=== PATIENT | female | born 1980 | race Hispanic/Latino ===

== ENCOUNTER 2016-10-26 11:52 | Emergency (ER) | payer OTHER ==
[~2016-10-26] VITALS: Ht 157.5 cm; Wt 81.6 kg
[~2016-10-26 11:52] MED LIST: ATIVAN0.5 MG PO; MOBIC15 M1 PO; PENICILLIN V P500 M1 PO
[2016-10-26 11:57] VITALS: BP 130/82
--- NOTE | 2016-10-26 12:03 | ED THROAT/DENTAL COMPLAINT ---
History of Present Illness General Chief Complaint: Sore Throat, Dental Pain Stated Complaint: RT TOOTH PAIN Source: patient, old records Exam Limitations: no limitations Vital Signs & Intake/Output Vital Signs & Intake/Output Vital Signs Date Time Temp Pulse Resp B/P Pulse O2 O2 Flow FiO2 Ox Delivery Rate 10/26 1157 97.5 96 16 130/82 99 Room Air Allergies Coded Allergies: No Known Allergies (10/26/16) Reconcile Medications Amoxicillin 875 MG TABLET 1 TAB PO BID dental Meloxicam (Mobic) 15 MG TABLET 1 TAB PO DAILY PRN PAIN/INFLAMMATION Risperidone 4 MG TABLET 1 TAB PO QPM PRN SLEEP (Reported) Triage Note: TOOTH PAIN X1 MONTH. HAD EPISODES IN THE PAST. SAW DENTIST, DX WITH ROOT CANAL BUT WASN'T ABLE TO HAVE TREATMENT BECAUSE OF INSURANCE REASONS. HAS APPT THIS THURSDAY AT [facility]. TAKING TYLENOL WITH NO RELIEF. RADIATES TO RIGHT EAR Triage Nurses Notes Reviewed? yes : No Patient currently breastfeeds: No HPI: Patient is a 36 year old female presents complaining of right lower dental pain. Patient has had pain to the area previously. Pain exacerbated x 1 week. Has an appointment in 5 days with a dentist. Taking Ibuprofen with minimal improvement. Was on Meloxicam and antibiotics several months ago which provided improvement. Pain radiates to the right ear. Denies fevers or difficulty swallowing. (AGUS HANNA) Past History Travel History Traveled to [place] past 21 day No Medical History Any Pertinent Medical History? see below for history Neurological: NONE EENT: NONE Cardiovascular: NONE Respiratory: NONE Gastrointestinal: NONE Hepatic: NONE Renal: NONE Musculoskeletal: NONE Psychiatric: anxiety, depression Endocrine: NONE Blood Disorders: NONE Cancer(s): NONE Surgical History Surgical History: non-contributory Psychosocial History What is your primary language [place] Tobacco Use: Quit >30 days ago ETOH Use: denies use Illicit Drug Use: denies illicit drug use Family History Hx Contributory? No (AGUS HANNA) Review of Systems Review of Systems Constitutional: Denies: chills, fever. EENTM: Reports: see HPI, tooth pain. Denies: throat pain, throat swelling. Respiratory: Denies: cough, short of breath. Cardiovascular: Denies: chest pain. GI: Reports: no symptoms. Musculoskeletal: Reports: no symptoms. Skin: Reports: no symptoms. Neurological/Psychological: Reports: headache. Hematologic/Endocrine: Reports: no symptoms. Immunologic/Allergic: Reports: no symptoms. (AGSU HANNA) Physical Exam Physical Exam General Appearance: well developed/nourished, alert, awake Head: atraumatic, normal appearance Eyes: Bilateral: normal appearance, PERRL, EOMI. Ears: Bilateral: canal normal, Tympanic normal. Nose: normal inspection Mouth/Throat: tenderness of tooth #30. Multiple teeth with fillings present. No visible or palpable abscesses Neck: normal inspection, supple, full range of motion Cardiovascular/Respiratory: normal breath sounds, no respiratory distress Back: normal range of motion Neurologic/Psych: no motor/sensory deficits, awake, alert, oriented x 3, normal gait, normal mood/affect Skin: intact, normal color, warm/dry Diagram Dental: 1) tender Core Measures ACS in differential dx? No Severe Sepsis Present: No Septic Shock Present: No (AGUS HANNA) Progress Differential Diagnosis: carious tooth, odontogenic abscess, tooth fracture Plan of Care: Patient has seen a dentist previously regarding this same tooth, and was told that she will need a root canal. No visible or palpable abscess. Patient has an appointment on Thursday with a dentist. Appears stable for discharge. (AGUS HANNA) Departure Departure Time of Disposition: 1215 Disposition: HOME OR SELF CARE Condition: Stable Clinical Impression Primary Impression: Pain, dental Referrals: LEAH ARCOS (PCP/Family) Additional Instructions: Follow up with the dentist on Thursday as scheduled. Return to the ER if fevers, difficulty swallowing, facial swelling or worsening of symptoms. Departure Forms: Customer Survey General Discharge Information Prescriptions: Current Visit Scripts Meloxicam (Mobic) 1 TAB PO DAILY PRN PAIN/INFLAMMATION #10 TAB Amoxicillin 1 TAB PO BID #14 TAB (AGUS HANNA) PA/HELP DESK ASSISTANT Co-Sign Statement Statement: ED Attending supervision documentation- [] I saw and evaluated the patient. I have also reviewed all the pertinent lab results and diagnostic results. I agree with the findings and the plan of care as documented in the PA's/HELP DESK ASSISTANT's documentation. [X] I have reviewed the ED Record and agree with the PA's/HELP DESK ASSISTANT's documentation. [] Additions or exceptions (if any) to the PAs/HELP DESK ASSISTANT's note and plan are summarized below: [] (VALENTE CRUZ,HANSEL Dickinson)
[2016-10-26] MEDS ORDERED: AMOXICILLIN875 M1 PO (12:18)
[2016-10-26] MEDS ORDERED: MOBIC15 M1 PO (12:18)
[2016-10-26] MEDS ORDERED: RISPERIDONE4 M1 PO (12:18)
== END 2016-10-26 12:25 ==
LOC: ERH 11:52
DX: K08.89 Other specified disorders of teeth and supporting structures (principal)